=== PATIENT | male | born 1975 | race Caucasian/White ===

== ENCOUNTER 2017-10-10 09:38 | Emergency (ER) | payer BC, OTHER ==
--- NOTE | 2017-10-10 10:29 | EDM.PDOC ---
ED HPI GENERAL MEDICAL PROBLEM - General Chief Complaint: Chest Pain Stated Complaint: CHEST PAIN Time Seen by Provider: 10/10/17 09:44 Source of Information: Reports: Patient, RN Notes Reviewed History Limitations: Reports: No Limitations - History of Present Illness INITIAL COMMENTS - FREE TEXT/NARRATIVE: The patient states that he developed retrosternal chest discomfort, a pressure sensation, this past 10/05/2017, as his was experiencing labor pains. The discomfort has waxed and waned ever since. The patient has not identified any modifiers. No dyspnea or nausea, although the patient does report occasional diaphoresis there is since he had vomiting and diarrhea on 10/01/2017 and 10/02/2017. He also reports that he feels quite anxious, and states that he has PTSD "bad". The patient developed right biceps pain this morning, which has been constant, also without modifiers. He also reports developing a headache that has been moving around his head, since this morning. The patient denies prior similar symptoms. The patient states that he was started on metoprolol 25 mg po BID last week, per his PCP, Dr. Taylor, at the [facility]. Right Chest Pain Score (Numeric/FACES): 1 - Related Data Allergies Allergy/AdvReac Type Severity Reaction Status Date / Time beeswax Allergy Swelling Verified 12/29/15 11:42 Home Meds: Home Meds Metoprolol Tartrate 50 mg PO BID 10/10/17 [History] Past Medical History HEENT History: Reports: Impaired Vision Other HEENT History: wears glasses Cardiovascular History: Reports: Hypertension Neurological History: Reports: Head Trauma Psychiatric History: Reports: Anxiety (untreated), Depression (untreated), PTSD (untreated) - Infectious Disease History Infectious Disease History: Reports: Chicken Pox - Past Surgical History HEENT Surgical History: Reports: Oral Surgery ([place] teeth extraction) Social & Family History - Tobacco Use Smoking Status *Q: Never Smoker Second Hand Smoke Exposure: No - Alcohol Use Alcohol Use History: Yes Date/Time of Last Drink Comment: Last = 2006. Former excessive use. - Recreational Drug Use Recreational Drug Use: No - Living Situation & Occupation Living situation: Reports: , with Spouse, with Family (2 kids) Occupation: Employed ([employer]) ED ROS GENERAL - Review of Systems Review Of Systems: See Below Constitutional: Reports: No Symptoms HEENT: Reports: No Symptoms Respiratory: Reports: No Symptoms Cardiovascular: Reports: No Symptoms Endocrine: Reports: No Symptoms GI/Abdominal: Reports: No Symptoms : Reports: No Symptoms Musculoskeletal: Reports: No Symptoms Skin: Reports: No Symptoms Neurological: Reports: No Symptoms Psychiatric: Reports: No Symptoms Hematologic/Lymphatic: Reports: No Symptoms Immunologic: Reports: No Symptoms ED EXAM, GENERAL - Physical Exam Exam: See Below Exam Limited By: No Limitations General Appearance: Alert, WD/WN, No Apparent Distress Eye Exam: Bilateral Eye: Normal Inspection Ears: Normal External Exam, Hearing Grossly Normal Nose: Normal Inspection, No Blood Throat/Mouth: Normal Inspection, Normal Lips, Normal Voice, No Airway Compromise Head: Atraumatic, Normocephalic Neck: Normal Inspection, Full Range of Motion Respiratory/Chest: No Respiratory Distress, Lungs Clear, Normal Breath Sounds, No Accessory Muscle Use, Chest Non-Tender Cardiovascular: Normal Peripheral Pulses, Regular Rate, Rhythm, No Gallop, No JVD, No Murmur, No Rub Peripheral Pulses: 4+: Radial (L), Radial (R) GI/Abdominal: Normal Bowel Sounds, Soft, Non-Tender, No Organomegaly, No Distention, No Abnormal Bruit, No Mass (Male) Exam: Deferred Rectal (Males) Exam: Deferred Back Exam: Normal Inspection, Full Range of Motion, NT Extremities: Normal Inspection, Normal Range of Motion, Non-Tender (including right biceps), No Pedal Edema, Normal Capillary Refill Neurological: Alert, Oriented, Normal Cognition, No Motor/Sensory Deficits Psychiatric: Normal Affect, Anxious Skin Exam: Warm, Dry, Intact, Normal Color, No Rash EKG INTERPRETATION EKG Date: 10/10/17 Time: 09:51 Rhythm: Other (Sinus bradycardia) Rate (Beats/Min): 56 [place]: Normal P-Wave: Present QRS: Normal ST-T: Normal QT: Normal Comparison: NA - No Prior EKG Course - Vital Signs Last Recorded V/S: Last Vital Signs Temp 37.1 C 10/10/17 09:54 Pulse 59 L 10/10/17 11:30 Resp 16 10/10/17 11:30 BP 148/101 H 10/10/17 11:30 Pulse Ox 98 10/10/17 11:30 - Orders/Labs/Meds Orders: Active Orders 24 hr Category Date Time Status EKG 12 Lead [EK] Stat Ther 10/10/17 09:59 Ordered Labs: Laboratory Tests 10/10/17 10/10/17 10/10/17 Range/Units 09:50 09:50 09:50 WBC 7.88 (4.23-9.07) K/mm3 RBC 5.37 (4.63-6.08) M/mm3 Hgb 16.2 (13.7-17.5) gm/L Hct 46.0 (40.1-51.0) % MCV 85.7 (79.0-92.2) fl MCH 30.2 (25.7-32.2) pg MCHC 35.2 (32.2-35.5) g/dl RDW Std Deviation 39.2 (35.1-43.9) fL Plt Count 254 (163-337) K/mm3 MPV 11.1 (9.4-12.3) fl Neut % (Auto) 58.5 (34.0-67.9) % Lymph % (Auto) 30.1 (21.8-53.1) % Storey % (Auto) 8.0 (5.3-12.2) % Eos % (Auto) 2.7 (0.8-7.0) Baso % (Auto) 0.6 (0.1-1.2) % Neut # (Auto) 4.61 (1.78-5.38) K/mm3 Lymph # (Auto) 2.37 (1.32-3.57) K/mm3 Storey # (Auto) 0.63 (0.30-0.82) K/mm3 Eos # (Auto) 0.21 (0.04-0.54) K/mm3 Baso # (Auto) 0.05 (0.01-0.08) K/mm3 PT (8.0-13.0) SECONDS INR APTT (22-36) SECONDS D-Dimer, Quantitative 0.26 (0.19-0.59) mg/L Sodium 142 (136-145) mEq/L Potassium 3.8 (3.5-5.1) mEq/L Chloride 105 (98-107) mEq/L Carbon Dioxide 27 (21-32) mEq/L Anion Gap 13.8 (5-15) BUN 9 (7-18) mg/dL Creatinine 1.0 (0.7-1.3) mg/dL Est Cr Clr Drug Dosing TNP Estimated GFR (MDRD) > 60 (>60) mL/min BUN/Creatinine Ratio 9.0 L (14-18) Glucose 139 H (74-106) mg/dL Calcium 9.4 (8.5-10.1) mg/dL Total Bilirubin 0.5 (0.2-1.0) mg/dL AST 44 H (15-37) U/L ALT 86 H (16-63) U/L Alkaline Phosphatase 66 (46-116) U/L Troponin I < 0.017 (0.00-0.056) ng/mL Total Protein 7.5 (6.4-8.2) g/dl Albumin 3.9 (3.4-5.0) g/dl Globulin 3.6 gm/dL Albumin/Globulin Ratio 1.1 (1-2) 10/10/17 Range/Units 09:50 WBC (4.23-9.07) K/mm3 RBC (4.63-6.08) M/mm3 Hgb (13.7-17.5) gm/L Hct (40.1-51.0) % MCV (79.0-92.2) fl MCH (25.7-32.2) pg MCHC (32.2-35.5) g/dl RDW Std Deviation (35.1-43.9) fL Plt Count (163-337) K/mm3 MPV (9.4-12.3) fl Neut % (Auto) (34.0-67.9) % Lymph % (Auto) (21.8-53.1) % Storey % (Auto) (5.3-12.2) % Eos % (Auto) (0.8-7.0) Baso % (Auto) (0.1-1.2) % Neut # (Auto) (1.78-5.38) K/mm3 Lymph # (Auto) (1.32-3.57) K/mm3 Storey # (Auto) (0.30-0.82) K/mm3 Eos # (Auto) (0.04-0.54) K/mm3 Baso # (Auto) (0.01-0.08) K/mm3 PT 9.9 (8.0-13.0) SECONDS INR 0.91 APTT 26 (22-36) SECONDS D-Dimer, Quantitative (0.19-0.59) mg/L Sodium (136-145) mEq/L Potassium (3.5-5.1) mEq/L Chloride (98-107) mEq/L Carbon Dioxide (21-32) mEq/L Anion Gap (5-15) BUN (7-18) mg/dL Creatinine (0.7-1.3) mg/dL Est Cr Clr Drug Dosing Estimated GFR (MDRD) (>60) mL/min BUN/Creatinine Ratio (14-18) Glucose (74-106) mg/dL Calcium (8.5-10.1) mg/dL Total Bilirubin (0.2-1.0) mg/dL AST (15-37) U/L ALT (16-63) U/L Alkaline Phosphatase (46-116) U/L Troponin I (0.00-0.056) ng/mL Total Protein (6.4-8.2) g/dl Albumin (3.4-5.0) g/dl Globulin gm/dL Albumin/Globulin Ratio (1-2) - Re-Assessments/Exams Free Text/Narrative Re-Assessment/Exam: 10/10/17 11:18 Two-view chest radiograph appears to be grossly normal. Cardiac silhouette is within normal limits. No pulmonary vascular congestion. No pleural effusions. No focal infiltrate. No pneumothorax. Formal read per the Radiologist pending. 10/10/17 11:23 Test results discussed with the patient. Today's workup is entirely unremarkable , with the exception of a blood glucose mildly elevated at 139, consistent with prediabetes, as the patient states that he has been tested many times for diabetes, always negative. The cause of his pain is not known. I am recommending a follow-up with his PCP at the [facility] to discuss management of prediabetes, and that he take [id number] Tylenol or ibuprofen as needed for his chest and arm discomfort. Departure - Departure Time of Disposition: 11:23 Disposition: Home, Self-Care 01 Condition: Good Clinical Impression: Chest pain of uncertain etiology - Discharge Information Instructions: Nonspecific Chest Pain Referrals: Sri Taylor DO [Primary Care Provider] - Forms: ED Department Discharge Additional Instructions: You were seen in the emergency room for chest discomfort, right arm discomfort, and a headache. Workup in the ER included a CBC, CMP, troponin, D-dimer, coags, an ECG, and a chest x-ray. Your blood sugar was found to be mildly elevated at 139, consistent with prediabetes. Otherwise, the remainder of your workup was entirely normal. You have not had a heart attack. You do not have a blood clot in your lungs. You do not have pneumonia, or a collapsed lung. You are not anemic. The cause of your chest discomfort is not known. We recommend that you take over -the-counter Tylenol or ibuprofen as needed for discomfort. We recommend that you follow-up with your PCP, Dr. Taylor, at the [facility], to discuss management of prediabetes. If any other problems, please do not hesitate to return to the ER. - My Orders Last 24 Hours: My Active Orders 10/10/17 09:59 EKG 12 Lead [EK] Stat - Assessment/Plan Last 24 Hours: My Active Orders 10/10/17 09:59 EKG 12 Lead [EK] Stat
[2017-10-10 11:38] VITALS: BP 148/101
--- NOTE | 2017-10-10 12:18 | CR ---
Chest: Two views of the chest were obtained. Comparison: No prior study. Heart size is normal. Mild tortuosity of the thoracic aorta is seen. Lungs are clear. Bony structures are unremarkable for the patient's age. Impression: 1. Nothing acute is seen on two-view chest x-ray. Diagnostic code #1
== END 2017-10-10 11:37 | disposition home or self-care (01) ==
LOC: JD.ED 09:38
DX: R07.89 Other chest pain (principal); I10 Essential (primary) hypertension
CPT/HCPCS: 36415; 71020; 71020-26; 80053; 84484; 85025; 85379; 85610; 85730; 93005; 93010; 99284; 99285-25

== ENCOUNTER 2022-06-10 16:01 | Emergency (ER) | payer OTHER, BC ==
[2022-06-10 16:50] VITALS: BP 163/110; PULSE 77
== END 2022-06-10 17:43 | disposition home or self-care (01) ==
LOC: JD.ED 16:01
DX: G51.0 Bell's palsy (principal); I10 Essential (primary) hypertension; Z91.030 Bee allergy status; Z79.899 Other long term (current) drug therapy
CPT/HCPCS: 99283; 99284

== ENCOUNTER 2025-08-20 09:14 | Emergency (ER) | payer OTHER, BC ==
[2025-08-20] MEDS ORDERED: Sodium Chloride 0.9% 10 ML Syringe FLUSH PRN (09:47)
[2025-08-20 10:03] LABS: BASOPHILS ABSOLUTE AUTO 0.1 K/mm3 (0.0-0.2); BASOPHILS PERCENT AUTO 0.6 % (0.0-1.0); EOSINOPHILS ABSOLUTE AUTO 0.1 K/mm3 (0.0-0.4); EOSINOPHILS PERCENT AUTO 0.8 % (0.0-6.0); IMMATURE GRAN ABSOLUTE AUTO 0.03 K/mm3 (0.00-0.05); IMMATURE GRAN PERCENT AUTO 0.3 % (0.0-0.4); LYMPHOCYTES ABSOLUTE AUTO 1.7 K/mm3 (1.0-4.8); LYMPHOCYTES PERCENT AUTO 17.4 % (24.0-44.0); MEAN PLATELET VOLUME 10.6 fl (9.4-12.4); MONOCYTES ABSOLUTE AUTO 0.6 K/mm3 (0.0-0.8); MONOCYTES PERCENT AUTO 5.9 % (0.0-8.0); NEUTROPHILS ABSOLUTE AUTO 7.4 K/mm3 (1.8-7.7); NEUTROPHILS PERCENT AUTO 75.0 % (41.0-71.0); NRBC ABSOLUTE 0.00 (0.00-0.02); NRBC PERCENT 0.0 % (0.0-0.2); PLATELET COUNT,PLT 227 K/mm3 (150-400); RED BLOOD CELL COUNT 5.16 M/mm3 (4.52-5.90); WHITE BLOOD CELL COUNT,WBC 9.92 K/mm3 (3.9-11.3)
[2025-08-20] MEDS: Sodium Chloride 0.9% 10 ML Syringe FLUSH PRN (10:12)
[2025-08-20 10:22] LABS: A/G RATIO 1.3 (1-2); ALANINE AMINOTRANSFERASE,ALT 46.0 U/L (16-63); ASPARTATE AMNIOTRANSFERASE,AST 27.0 U/L (15-37); BILIRUBIN TOTAL 0.9 mg/dL (0.2-1.0); BLOOD UREA NITROGEN,BUN 12.0 mg/dL (7-18); CARBON DIOXIDE,CO2 27.0 mEq/L (21-32); CHLORIDE,CL 103.0 mEq/L (98-107); CREATININE 1.4 mg/dL (0.7-1.3); EST CRCL DRUG DOSING (CG) 57.71 mL/min; ESTIMATED GFR 60.0 mL/min (>60); GLUCOSE RANDOM 121.0 mg/dL (70-99); POTASSIUM,K 4.0 mEq/L (3.5-5.1); PROTEIN TOTAL,TP 7.7 g/dl (6.4-8.2); SODIUM,NA 140.0 mEq/L (136-145)
[2025-08-20] MEDS: Iopamidol 612 MG/ML 100 ML Bottle IVPUSH ONE (10:24)
[2025-08-20 12:11] LABS: APPEARANCE,URINE CLEAR (Clear); GLUCOSE,URINE NEGATIVE (Negative); OCCULT BLOOD,URINE 2+ (Negative)
[2025-08-20 12:36] LABS: EPITHELIAL CELLS,URINE 0-5 /hpf (0-5)
[2025-08-20 15:14] VITALS: BP 136/87; PULSE 58
== END 2025-08-20 13:10 | disposition home or self-care (01) ==
LOC: JD.ED 09:14
DX: N13.2 Hydronephrosis with renal and ureteral calculous obstruction (principal); I10 Essential (primary) hypertension; Z79.899 Other long term (current) drug therapy; Z91.030 Bee allergy status
CPT/HCPCS: 36415; 74177; 80053; 81001; 83690; 85025; 96361; 96374; 96375; 99284; J2765; J7030; Q9967; J1171